=== PATIENT | male | born 1975 | race Caucasian/White ===

== ENCOUNTER 2018-06-01 14:08 | Observation (INO) ==
[2018-06-01 15:09] LABS: BASO# 0.03 X1000 (0.0-0.2); BASO% 0.5 % (0.0-0.8); EOS# 0.43 X1000 (0.0-0.7); EOS% 6.6 % (0.0-10.0); HEMATOCRIT 45.4 % (42.0-52.0); HEMOGLOBIN 15.6 g/dL (14.0-18.0); IMM GRAN# 0.02 X1000 (0.0-0.04); IMM GRAN% 0.3 % (0.0-0.5); LYMPH% 36.9 % (20.5-51.1); MCH 30.9 PG (27-31); MCHC 34.4 g/dL (33-37); MCV 89.9 FL (81-99); MONO# 0.51 X1000 (0.11-0.59); MONO% 7.8 % (1.7-9.3); MPV 10.9 FL (7.4-10.4); NEUT# 3.12 X1000 (1.4-6.5); NEUT% 47.9 % (42.2-75.2); PLT 211 X1000 (130-400); RBC 5.05 XMIL (4.7-6.1); RDW 12.8 % (11.5-14.5); WBC 6.51 X1000 (4.8-10.8)
[2018-06-01 15:10] LABS: BILIRUBIN URINE NEGATIVE (NEGATIVE); BLOOD URINE NEGATIVE (NEGATIVE); CLARITY CLEAR (CLEAR); COLOR YELLOW; GLUCOSE URINE NEGATIVE (NEGATIVE); KETONE URINE NEGATIVE (NEGATIVE); LEUKOCYTES URINE NEGATIVE (NEGATIVE); NITRITE URINE NEGATIVE (NEGATIVE); PH URINE 6.5; PROTEIN URINE NEGATIVE (NEGATIVE); UROBILINOGEN URINE NORMAL
--- NOTE | 2018-06-01 15:20 | Diag Imaging Result Doc PS360 ---
EXAM: CT HEAD W/O CONTRAST HISTORY: possible TIA TECHNIQUE: Images were obtained from the skull base to vertex without IV contrast as per standard protocol. COMPARISON: None. FINDINGS: There are no extra-axial collections. There is no evidence for acute infarct or hemorrhage. There is no midline shift or mass effect. There is no hydrocephalus. IMPRESSION: No acute intracranial abnormality is appreciated. This exam was performed using automated exposure control, adjustment of mA or kV according to patient size, and/or use of iterative reconstruction technique. Electronically signed by Dianna Quezada 06/01/2018 3:18 PM
--- NOTE | 2018-06-01 15:21 | Diag Imaging Result Doc PS360 ---
EXAM: CHEST-PORTABLE HISTORY: possible TIA TECHNIQUE: Single view of the chest was performed portably. COMPARISON: None. FINDINGS: The cardiomediastinal silhouette is within normal limits. The pulmonary vasculature is not congested. No infiltrate, effusion, or pneumothorax is appreciated. There are small scattered granulomata. IMPRESSION: No acute cardiopulmonary abnormality is identified. Electronically signed by Dianna Quezada 06/01/2018 3:19 PM
[2018-06-01 15:27] LABS: INR 0.99; PROTIME 13.6 Seconds (11.0-16.0)
[2018-06-01 15:28] LABS: AGAP 12; ALBUMIN 4.2 g/dL (3.5-5.0); ALKALINE PHOSPHATASE 88 U/L (32-122); BUN 11 mg/dL (8-22); CHLORIDE 106 mmol/L (98-107); COSMO 284; CREATININE 0.8 mg/dL (0.7-1.2); ESTIMATED GFR > 60; GLUCOSE 118 mg/dL (70-104); GOT 24 U/L (10-34); GPT 49 U/L (10-44); POTASSIUM 4.1 mmol/L (3.5-5.1); PTT 28.1 Seconds (22.3-41.8); SODIUM 142 mmol/L (136-145); TCO2 25 mmol/L (25-35); TOTAL PROTEIN 7.3 g/dL (6.3-8.3)
[2018-06-01 15:28] LABS: URINE SOURCE CLEAN CATCH
[2018-06-01 15:30] LABS: URINE BACTERIA NEGATIVE /HFP; URINE CAST NONE SEEN /LPF; URINE CRYSTAL NONE SEEN /HPF; URINE EPITHELIAL CELLS <10 /HPF (<10); URINE RBC <10 /HPF (<10); URINE WBC <10 /HPF (<10); URINE YEAST NONE SEEN /HPF
[2018-06-01] MEDS ORDERED: DUONEB (A & A) INH ONE (16:17)
--- NOTE | 2018-06-01 17:49 | PROVIDER DOCUMENTATION ---
This chart was entered by Anne Lucas Scribe, acting as scribe for Katie Phillips CRNP. HPI-Neurological Disorder - General Source: patient - History of Present Illness-Neuro Onset/Duration: reports: 5 days ago Timing: reports: improving Any recent trauma/injury?: reports: none <Katie Phillips - Last Filed: 06/01/18 18:14> <Rod Horn - Last Filed: 06/01/18 19:29> - General Chief Complaint: Stroke-Like Symptoms Stated Complaint: POSS TIA Time Seen by Provider: 06/01/18 14:45 Allergies/Adverse Reactions: Patient Allergies Allergy/AdvReac Type Severity Reaction Status Date / Time No Known Allergies Allergy Verified 06/01/18 14:31 Home Medications: Home Medication List Medication Instructions Recorded Confirmed Last Taken Type Azithromycin 500 mg PO DIRECTED 06/01/18 06/01/18 Unknown History Metoprolol Succinate [Toprol Xl] 25 mg PO BID 06/01/18 06/01/18 06/01/18 08:00 History Minocycline HCl 100 mg PO BID 06/01/18 06/01/18 06/01/18 08:00 History Nystatin 500,000 unit PO 4XDAY 06/01/18 06/01/18 06/01/18 08:00 History - History of Present Illness-Neuro Nature of Presenting Problem: 43 yom presents to ED c/o tingling, numbness and odd feeling in left face, arm and leg since Wednesday. Pt states he has had similar symptoms before but they went away quickly and he felt it was related to his Lyme Disease. Pt states his left leg is normally a little tingly from 3 previous back surgeries. Pt states he was told by PCP to call neurologist but they can't see him until June. Pt denies chest pain, rash or SOB. Pt has hx of HTN and Lyme disease, diagnosed 12/08. (Katie Phillips) Review of Systems - Adult - REVIEW OF SYSTEMS - ADULT Constitutional: reports: see HPI. denies: chills, fever, fatique Eyes: reports: no symptoms reported Ears, Nose, Mouth & Throat: reports: no symptoms reported Cardiovascular: reports: see HPI. denies: chest pain, syncope Respiratory: reports: see HPI. denies: shortness of breath, wheezing Gastrointestinal: reports: no symptoms reported Genitourinary: reports: no symptoms reported Musculoskeletal: reports: no symptoms reported Integumentary: reports: no symptoms reported Neurological: reports: see HPI, loss of balance, numbness, other (tingly feeling in left face, arm and leg). denies: headache/migraines Psychiatric: reports: no symptoms reported Endocrine: reports: no symptoms reported Hematologic/Lymphatic: reports: no symptoms reported Allergic/Immunologic: reports: no symptoms reported All Other Systems: Reviewed and Negative <Katie Phillips - Last Filed: 06/01/18 18:14> Past History - Adult - PAST MEDICAL HISTORY-ADULT Review of Records: reports: Nursing Assessment Review, Medications Reviewed, Social history reviewed & non-contributory. Major Childhood Illnesses: reports: denies history Cardiovascular: reports: HTN Respiratory: reports: denies history Gastrointestinal: reports: denies history Obstetrical/Gynecological: reports: denies history Genitourinary: reports: denies history Musculoskeletal: reports: denies history Neurological: reports: denies history Endocrine/Immune: reports: denies history Other Conditions: reports: other (Lyme disease) - IMMUNIZATION STATUS Childhood Immunizations: See Nurse Assessment Flu Vaccine: See Nurse Assessment - FAMILY HISTORY Family History: reviewed, not pertinent - SOCIAL HISTORY Smoking: denies <Katie Phillips Last Filed: 06/01/18 18:14> Physical Exam- Neurological - Physical Exam-Neuro Initial Vital Signs Reviewed: Yes General Appearance: appears well, alert, no apparent distress. negative: anxious, lethargic, slow to respond, combative Eye Exam: bilateral eye: normal inspection, PERRL HENMT: moist mucous membranes, normal ENT inspection. negative: angioedema Head Injury: no evidence of injury. negative: active bleeding, Moreno's Sign, contusions Neck: non-tender, full range of motion, supple, normal inspection. negative: Brudzinski's sign, carotid bruit Respiratory: chest non-tender, lungs clear, normal breath sounds, no pleuratic chest pain, no respiratory distress, no accessory muscle use. negative: crackles, rales, rhonchi Cardiovascular: normal peripheral pulses, regular rate, rhythm, no edema, no gallop, no JVD, no murmur. negative: bradycardia, tachycardia Abdominal Exam: normal bowel sounds, non tender, soft. negative: rigid, rebound, tenderness Lymphatic: no adenopathy. negative: striations Extremity: normal range of motion. negative: swelling panel builder Exam: normal hearing, normal speech, PERRL. negative: facial droop, facial paresthesias Coordination/Gait: normal finger to nose, normal gait Motor/Sensory: no motor deficit, no sensory deficit Neurologic: panel builder II-XII nml as tested, grossly normal, no motor/sensory deficits. negative: facial droop, focal weakness Integumentary: normal color, normal turgor, warm/dry. negative: diaphoresis, jaundice Psych/Mental Status: normal mood/affect, normal thought content, normal thought process, oriented x 3. negative: paranoid <Katie Phillips - Last Filed: 06/01/18 18:14> Progress - PLAN OF CARE/RESULTS Result Diagrams: 06/01/18 14:40 06/01/18 14:40 - REASSESSMENT Reassessment #1 Time Reassessed: 16:30 Status: other (pt now complaining of chest tightness, so orders cardiac enzymes) - EKG 1 Time of EKG reading by physician:: 15:07 EKG Read and Signed by:: Rod Horn EKG Interpretation (*Must complete 3 of following elements*): Normal Rate: 72 Rhythm: normal sinus QRS: normal ST Wave: normal - XRAY 1 XRAY: Bilateral XRAY Study: Chest Impression: See EMR Report (IMPRESSION: No acute cardiopulmonary abnormality is identified. Electronically signed by Dianna Quezada 06/01/2018 3:19 PM) - CT/MRI 1 CT Study: Head Impression: See EMR Report (IMPRESSION: No acute intracranial abnormality is appreciated. This exam was performed using automated exposure control, adjustment of mA or kV according to patient size, and/or use of iterative reconstruction technique. Electronically signed by Dianna Quezada 06/01/2018 3:18 PM) - CHANGE OF SHIFT REPORT (ED Provider) 1 Report Given and Care Transferred to:: Dr Horn Time of Transfer: 18:00 Items Pending: Labs (Troponin and cardiac markers) <Katie Phillips - Rehan Filed: 06/01/18 18:14> - PLAN OF CARE/RESULTS Result Diagrams: 06/01/18 14:40 06/01/18 14:40 - CONSULTS/PCP/HOSPITALIST Notification #1 *Consult/PCP/Hospitalist*: Dr Segura Time Discussed: 19:27 Consult Disposition: Admit <KoryRod youngValeria - Last Filed: 06/01/18 19:29> - PLAN OF CARE/RESULTS Progress/Plan/Lab Results: Vital Signs - 8 hr 06/01/18 14:23 06/01/18 16:49 06/01/18 17:00 Temperature 98.4 F 98.4 F Pulse Rate 81 68 80 Respiratory Rate 18 18 20 Blood Pressure 146/70 140/102 O2 Sat by Pulse Oximetry 97 96 Laboratory Results - last 24 hr 06/01/18 06/01/18 06/01/18 14:40 14:40 14:40 WBC 6.51 RBC 5.05 Hgb 15.6 Hct 45.4 MCV 89.9 MCH 30.9 MCHC 34.4 RDW Std Deviation 12.8 Plt Count 211 MPV 10.9 H Immature Gran % (Auto) 0.3 Neut % (Auto) 47.9 Lymph % (Auto) 36.9 Wallace % (Auto) 7.8 Eos % (Auto) 6.6 Baso % (Auto) 0.5 Immature Gran # (Auto) 0.02 Neut # (Auto) 3.12 Lymph # (Auto) 2.40 Wallace # (Auto) 0.51 Eos # (Auto) 0.43 Baso # (Auto) 0.03 PT INR PTT (Actin FS) Sodium 142 Potassium 4.1 Chloride 106 Carbon Dioxide 25 Anion Gap 12 BUN 11 Creatinine 0.8 Estimated GFR/1.73 m2 > 60 BUN/Creatinine Ratio 14 Glucose 118 H POC Glucose Calculated Osmolality 284 Calcium 9.0 Total Bilirubin 0.50 AST 24 ALT 49 H Alkaline Phosphatase 88 Creatine Kinase Troponin T < 0.010 Total Protein 7.3 Albumin 4.2 Globulin 3.0 Albumin/Globulin Ratio 1.0 Urine Source Urine Color Urine Clarity Urine pH Ur Specific [place] Urine Protein Urine Ketones Urine Blood Urine Nitrite Urine Bilirubin Urine Urobilinogen Urine Microscopic RBC Urine WBC Urine Microscopic WBC Ur Epithelial Cells Urine Crystals Urine Bacteria Urine Casts Urine Yeast Urine Glucose 06/01/18 06/01/18 06/01/18 14:40 14:45 15:12 WBC RBC Hgb Hct MCV MCH MCHC RDW Std Deviation Plt Count MPV Immature Gran % (Auto) Neut % (Auto) Lymph % (Auto) Wallace % (Auto) Eos % (Auto) Baso % (Auto) Immature Gran # (Auto) Neut # (Auto) Lymph # (Auto) Wallace # (Auto) Eos # (Auto) Baso # (Auto) PT 13.6 INR 0.99 PTT (Actin FS) 28.1 Sodium Potassium Chloride Carbon Dioxide Anion Gap BUN Creatinine Estimated GFR/1.73 m2 BUN/Creatinine Ratio Glucose POC Glucose 101 Calculated Osmolality Calcium Total Bilirubin AST ALT Alkaline Phosphatase Creatine Kinase Troponin T Total Protein Albumin Globulin Albumin/Globulin Ratio Urine Source CLEAN CATCH Urine Color YELLOW Urine Clarity CLEAR Urine pH 6.5 Ur Specific [place] 1.000 Urine Protein NEGATIVE Urine Ketones NEGATIVE Urine Blood NEGATIVE Urine Nitrite NEGATIVE Urine Bilirubin NEGATIVE Urine Urobilinogen NORMAL Urine Microscopic RBC <10 Urine WBC NEGATIVE Urine Microscopic WBC <10 Ur Epithelial Cells <10 Urine Crystals NONE SEEN Urine Bacteria NEGATIVE Urine Casts NONE SEEN Urine Yeast NONE SEEN Urine Glucose NEGATIVE 06/01/18 06/01/18 17:00 17:00 WBC RBC Hgb Hct MCV MCH MCHC RDW Std Deviation Plt Count MPV Immature Gran % (Auto) Neut % (Auto) Lymph % (Auto) Wallace % (Auto) Eos % (Auto) Baso % (Auto) Immature Gran # (Auto) Neut # (Auto) Lymph # (Auto) Wallace # (Auto) Eos # (Auto) Baso # (Auto) PT INR PTT (Actin FS) Sodium Potassium Chloride Carbon Dioxide Anion Gap BUN Creatinine Estimated GFR/1.73 m2 BUN/Creatinine Ratio Glucose POC Glucose Calculated Osmolality Calcium Total Bilirubin AST ALT Alkaline Phosphatase Creatine Kinase 83 Troponin T < 0.010 Total Protein Albumin Globulin Albumin/Globulin Ratio Urine Source Urine Color Urine Clarity Urine pH Ur Specific Galena Urine Protein Urine Ketones Urine Blood Urine Nitrite Urine Bilirubin Urine Urobilinogen Urine Microscopic RBC Urine WBC Urine Microscopic WBC Ur Epithelial Cells Urine Crystals Urine Bacteria Urine Casts Urine Yeast Urine Glucose Orders Category Date Time Status Finger Stick Blood Sugar (ED) DIRECTED Care 06/01/18 14:35 Active CHEST-PORTABLE [RAD] Stat Exams 06/01/18 14:[address] HEAD W/O CONTRAST [CT] Stat Exams 06/01/18 14:35 Completed CBC WITH ELECTRONIC DIFF [HEME] Stat Lab 06/01/18 14:40 Completed COMPREHENSIVE METABOLIC PANEL [CHEM] Stat Lab 06/01/18 14:40 Completed Cardiac Profile [CK PROFILE] [SP CHEM] Stat Lab 06/01/18 17:00 Completed PROTIME WITH INR [COAG] Stat Lab 06/01/18 14:40 Completed PTT [COAG] Stat Lab 06/01/18 14:40 Completed TROPONIN T Stat Lab 06/01/18 14:40 Completed TROPONIN T Stat Lab 06/01/18 17:00 Completed UA NIMS W/REFLEX CULT PL [URINALYSIS] Stat Lab 06/01/18 14:45 Completed Albuterol 2.5MG/Ipratrop 0.5MG [Duoneb (A & A)] Med 06/01/18 16:17 Discontinued 3 ml INH NOW ONE Aerosol Treatments Routine Oth 06/01/18 16:18 Completed Aerosol Treatments Stat Oth 06/01/18 16:18 Completed EKG [EKG] Stat Ther 06/01/18 14:35 Ordered In to see patient and discussed transfer of care to Dr Horn, patient verbalized understanding (Katie Phillips) Departure <Katie Phillips - Last Filed: 06/01/18 18:14> - Departure Date of Disposition Decision: 06/01/18 Time of Disposition Decision: 19:28 Certified Medical Emergency: Emergent - Critical Care Note This patient required my direct & personal management of CC.: No <Rod Horn - Last Filed: 06/01/18 19:29> - Departure DIAGNOSIS: Numbness and tingling, TIA (transient ischemic attack), Atypical chest pain Disposition: ADMITTED INPATIENT 09 Condition: Fair Additional Freetext Instructions: Continue current medications Call your physician for follow-up tomorrow Return to Emergency Room as discussed if symptoms return ED Follow Up Instructions: You have been treated by a care provider in the Emergency Department. These instructions are being provided to you so you can have an understanding of how to care for yourself upon discharge. Upon discharge from the Emergency Department, you are responsible for making arrangements for follow-up care by a physician of your choice. Take all prescribed medications as directed. Return to the Emergency Department immediately for any new or worsening symptoms. You may call the Physician Referral phone number at [phone] to obtain a list of Physicians who are taking new patients. Referrals and Follow-Ups: ANDERS LANZA [Primary Care Provider] - Attestation - Physician/ CHEO Attestation Patient care was provided by Advanced Practice Provider:: Yes Advanced Practice Provider:: Katie Phillips Advanced Practice Provider documentation review:: The Mid-level provider documentation, treatment plan and medical decision making was reviewed by the physician who agrees with all treatment and medical decision making by the MLP. <Katie Phillips - Last Filed: 06/01/18 18:14> - Physician/ CHEO Attestation Patient care was provided by Advanced Practice Provider:: Yes Advanced Practice Provider documentation review:: The Mid-level provider documentation, treatment plan and medical decision making was reviewed by the physician who agrees with all treatment and medical decision making by the MLP. The physician spent face to face time with patient:: Yes Advanced Practice Provider documentation review:: Supervising physician onsite and consulted in the evaluation and care of this patient. The physician did have a face to face encounter with the patient. <Rod Horn - Last Filed: 06/01/18 19:29> - NIH Stroke Scale Level of Consciousness: 0-Alert LOC Questions (ask month and age): 0-Answers Both Correctly LOC Commands (ask to open & close eyes;make a fist, let go): 0-Obeys Both Correctly Best Gaze (horizontal eye movement): 0-Normal Visual (use finger movement, counting or visual threat): 0-No Visual Loss Facial Palsy (show teeth or raise eyebrows & close eyes tght: 0-Symmetrical Movement Motor Function-left arm: 0-Normal Motor Function-right arm: 0-Normal Motor Function-left le-Normal Motor Function-right le-Normal Limb Ataxia(vsnioi-vbud-pvozwu, or heel to del real): 0-No Ataxia Sensory(pin prick to face,arms,trunk,legs-compare side/side): 0-No Ataxia Best Language(name item/read sentence.Ex-Down to Earth): 0-No Aphasia Dysarthria(Pt read words or say words Ex.Mama,Tip-Top,Thanks: 0-Normal Articulation Extinction and Inattention: 0-Normal <Rod Horn - Last Filed: 06/01/18 19:29> This chart was documented by the indicated scribe, (Anne Lucas, Jessica) and accurately reflects the services I performed and decisions made by , Katie Phillips CRNP, as attested by the provider's signature.
[2018-06-01] MEDS ORDERED: NS 1,000 ML IV ONE (19:33)
[2018-06-02] MEDS ORDERED: TYLENOL PO PRN (06:23)
[2018-06-02] MEDS ORDERED: ZOFRAN IV PRN (06:23)
[2018-06-02] MEDS ORDERED: LOVENOX SUBQ SCH (06:30)
[2018-06-02 07:59] LABS: BASO# 0.03 X1000 (0.0-0.2); BASO% 0.4 % (0.0-0.8); EOS# 0.54 X1000 (0.0-0.7); EOS% 7.1 % (0.0-10.0); HEMATOCRIT 45.8 % (42.0-52.0); HEMOGLOBIN 15.4 g/dL (14.0-18.0); IMM GRAN# 0.07 X1000 (0.0-0.04); IMM GRAN% 0.9 % (0.0-0.5); LYMPH# 2.56 X1000 (1.2-3.4); LYMPH% 33.6 % (20.5-51.1); MCH 30.8 PG (27-31); MCHC 33.6 g/dL (33-37); MCV 91.6 FL (81-99); MONO# 0.74 X1000 (0.11-0.59); MONO% 9.7 % (1.7-9.3); MPV 10.8 FL (7.4-10.4); NEUT# 3.69 X1000 (1.4-6.5); NEUT% 48.3 % (42.2-75.2); PLT 209 X1000 (130-400); RDW 13.1 % (11.5-14.5); WBC 7.63 X1000 (4.8-10.8)
[2018-06-02 08:25] LABS: AGAP 11; ALBUMIN 4.2 g/dL (3.5-5.0); ALKALINE PHOSPHATASE 86 U/L (32-122); BUN 14 mg/dL (8-22); CHLORIDE 107 mmol/L (98-107); COSMO 286; CREATININE 0.8 mg/dL (0.7-1.2); ESTIMATED GFR > 60; GLUCOSE 104 mg/dL (70-104); GOT 22 U/L (10-34); GPT 49 U/L (10-44); POTASSIUM 4.8 mmol/L (3.5-5.1); SODIUM 143 mmol/L (136-145); TCO2 25 mmol/L (25-35); TOTAL PROTEIN 7.1 g/dL (6.3-8.3)
[2018-06-02] MEDS ORDERED: ASPIRIN EC PO SCH (09:00)
--- NOTE | 2018-06-02 10:18 | Diag Imaging Result Doc PS360 ---
EXAM: MRI BRAIN W/WO CONTRAST - 06/02/2018 HISTORY: stroke TECHNIQUE: MRI brain without and with contrast. Images are obtained prior to and following gadolinium administration. COMPARISON: 06/01/2018 CT head without contrast FINDINGS: There is no evidence of intracranial hemorrhage, mass effect, midline shift, or hydrocephalus. There are no substantial signal abnormalities identified. The diffusion weighted images show no areas of restricted diffusion (no evidence of acute infarct). There is no abnormal enhancement identified. There is mild paranasal sinus disease noted. IMPRESSION: No visible intracranial abnormality. The diffusion weighted images show no evidence of acute infarct. Electronically signed by Angel Laguna 06/02/2018 10:16 AM
--- NOTE | 2018-06-02 10:24 | Diag Imaging Result Doc PS360 ---
EXAM: MRA BRAIN W/O CONTRAST - 06/02/2018 HISTORY: stroke TECHNIQUE: MRA brain without contrast. [id number] MR angiogram of the intracranial circulation with reconstructed 3-D MIP images is obtained. COMPARISON: None. FINDINGS: The A1 segment right anterior cerebral artery is apparently atretic, with the right A2 segment receiving its supply from the left via the anterior communicating artery. This likely represents normal variation. The distal portion of the left middle cerebral artery is generally smaller in caliber than the right, but does not show substantial focal stenosis. This could relate to normal variation or mild atherosclerotic narrowing. The left posterior cerebral artery is generally smaller in caliber than the right, but does not show substantial focal stenosis. This could relate to normal variation or mild atherosclerotic narrowing. Otherwise, there is no major intracranial arterial occlusion identified. There is no aneurysm identified. IMPRESSION: Findings as detailed above. Electronically signed by Angel Lgauna 06/02/2018 10:22 AM
[2018-06-02 12:47] VITALS: BP 129/87
--- NOTE | 2018-06-02 14:26 | Extremity Venous Study ---
EXAM: Carotid Ultrasound - 06/02/2018 HISTORY: tia TECHNIQUE: Carotid flow studies COMPARISON: None. FINDINGS: There is no discrete atherosclerotic plaquing identified in the right carotid system. Maximum systolic velocity right internal carotid is 50 cm/s, maximum diastolic velocity is 25 cm/s. The right internal to common carotid systolic velocity ratio is 0.74. The flow velocities and ratio are consistent with 0-39% stenosis at the right internal carotid. The right vertebral demonstrates antegrade flow. There is no discrete atherosclerotic plaquing identified in the left carotid system. Maximum systolic velocity in the left internal carotid is 73 cm/s, maximum diastolic velocity is 34 cm/s. The left internal to common carotid systolic velocity ratio is 1.02. The flow velocities and ratio are consistent with 0-39% stenosis at the left internal carotid. The left vertebral demonstrates antegrade flow. IMPRESSION: 0-39% stenosis at right internal carotid. 0-39% stenosis at left internal carotid. Electronically signed by Angel Laguna 06/02/2018 2:24 PM
--- NOTE | 2018-06-02 14:52 | EKG Report ---
Test Performed on : 06/01/2018 3:07:35 PM Test Reason : stroke like sx Blood Pressure : / mmHG Vent. Rate : 072 BPM Atrial Rate : 072 BPM P-R Int : 162 ms QRS Dur : 076 ms QT Int : 390 ms P-R-T Axes : 028 006 027 degrees QTc Int : 427 ms Normal sinus rhythm. Normal ECG No previous ECGs available Unconfirmed Result
--- NOTE | 2018-06-02 15:18 | HISTORY AND PHYSICAL ---
The patient was actually seen on 06/02/2018. LOAN UNDERWRITER: Dr. Ramires. NEUROCHIROPRACTOR: Lyme disease doctor in [place]. PRIMARY CARE PROVIDER: Amy Gaitan. NEUROLOGIST: Aleyda Coffey in [place]. CHIEF COMPLAINT: Left-sided numbness and tingling, episode of chest tightness in the ED. HISTORY OF PRESENT ILLNESS: Mr. Lopez is a 43-year-old, male who carries a past medical history of hypertension and Lyme disease that is chronic that he believes that he got as a child. He reports that he normally has numbness and tingling on the left side secondary to neck and back issues. He also drags his foot. However, on Wednesday, his numbness and tingling intensified. The felt like the left side of his mouth was not moving and he was more prominently dragging his left foot. By Wednesday afternoon, his prominence had subsided. He has had many of these episodes in the past, his last being back in March. They attribute this to his neck and back issues, as well as his Lyme disease, which he follows up closely with his neurochiropractor as well as his Lyme disease doctor in [place]. While in the ED, he did have an episode of chest tightness. He felt like he maybe had some shortness of breath. It did not radiate or go anywhere. There was no nausea, vomiting, or associated diaphoresis, and it resolved quickly as well. Three sets of cardiac enzymes have been negative. He was initially admitted for a TIA. He had a head CT that did not show any acute abnormalities. Brain MRI did not show any visible intracranial abnormality. No evidence of acute infarct. MRA shows normal variations or mild atherosclerotic narrowing. Carotid Dopplers and echocardiogram are currently pending. All other laboratory data is essentially unremarkable. PAST MEDICAL HISTORY: 1. Hypertension. 2. Lyme disease. PAST SURGICAL HISTORY: 1. Back surgery in 2002 with a diskectomy, back surgery with a fusion in 2003. 2. In 2018, he had a cyst removed from the back. 3. In 2013, he had a refusion with plastic cage and calcium placed. 4. In 1995, sinus surgery. FAMILY HISTORY: Mother with hypertension, CHF, TIAs. SOCIAL HISTORY: He is . They have 4 children. No alcohol, tobacco, or illicit drug use. ALLERGIES: No known drug allergies. HOME MEDICATIONS: Not completely accurate. I did take a look at his home medication. It was a page and we only have four medications listed. 1. Azithromycin 500 mg p.o. as directed Wednesday through Wednesday. He takes Wednesday and Wednesday off for his Lyme disease. 2. Toprol-XL 25 mg p.o. b.i.d. 3. Minocycline 100 mg p.o. b.i.d. 4. Nystatin 2 tablets p.o. b.i.d. 5. He takes several other herbal medications for his Lyme disease. PHYSICAL EXAMINATION: VITAL SIGNS: Temperature is 97.8 degrees, heart rate 68, respirations 18, blood pressure 129/87, O2 is 98% on room air. GENERAL: Mr. Lopez is a 43-year-old, male who is lying on the bed in no acute distress. at bedside. HEENT: Atraumatic, normocephalic. PERRL. NECK: Supple. Trachea midline. CARDIOVASCULAR: S1 and S2 are appreciated. No murmurs, gallops, or rubs. RESPIRATORY: Lung sounds clear bilaterally. GI: Soft, nontender, nondistended. Positive bowel sounds in 4 quadrants. EXTREMITIES: No lower extremity edema. NEUROLOGIC: No focal deficits noted. He is alert and oriented. Follows commands. Moves all extremities. No facial drooping, difficulty with speech. Tongue midline. He states when he is up walking, he does have a left foot drag. Did not assess gait and his normal is to have numbness and tingling on the left side of his body, so he feels more on the right than the left as far as sensation. DIAGNOSTIC DATA: As mentioned in the HPI, laboratory data, white count 6, hemoglobin and hematocrit 15 and 45, platelet count is 211,000. Chemistry: Sodium 142, potassium 4.1, BUN 11, creatinine 0.8, blood glucose is 118. AST slightly elevated at 49. Urinalysis was negative. His cholesterol is 202. ASSESSMENT/PLAN: 1. Transient ischemic attack versus cerebrovascular accident versus Lyme disease versus neck and back issues. The patient has undergone a majority of his studies with his brain MRI, head CT. We are awaiting his final results of his echocardiogram and carotid Dopplers. Again, this has completely resolved. This was an issue that happened on Wednesday and had resolved by the afternoon. The patient just now has his regular numbness and tingling, and left foot lag. 2. Atypical chest pain. Reported one episode of chest tightness that quickly resolved. Cardiac enzymes have been negative. Still awaiting echocardiogram. 3. Hypertension. Continue home medications. 4. Lyme disease. We will continue his home medications. 5. Further recommendations to follow physician evaluation, laboratory and diagnostic data. Dictated by YANN Bai for Nato Segura MD cc: MD Amy Vera
--- NOTE | 2018-06-02 15:27 | DISCHARGE SUMMARY ---
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 The patient has chronic paresthesias, but these were more intense. In any case, he came in with paresthesias. He is also having some chest pain so he was placed in observation for treatment. He has had an extensive workup. His neurologic exam is completely normal to me. He does report some numbness in the lower quadrants of his face starting from his eye down so he does have some frontal sparing, but that has been that way for a while. He is nonfocal. He has a nonfocal exam. His MRI was negative. MRA was negative. Echo and carotid are pending, but I think it is unlikely this is a vascular process. He is 43 without significant risk factors. I did recommend aspirin 81 mg until he follows up with his PCP or his neuro neurologist. He has an appointment on the with him. Other workup was unremarkable. DISPOSITION: Anticipate we will discharge today. DISCHARGE MEDICATIONS: Have not been resolved, but we will discharge on aspirin, Toprol-XL, and minocycline. Follow clinically. He has been on long-standing nystatin, minocycline, azithromycin, and may need to consider that. We just may need to consider long-term affects of these antibiotics that they may be in themselves inducing paresthesias. I do not really have a lot of workup there from that standpoint. He is not anemic nothing to suggest any other issues. Recommend again following up with his PCP. [id number] encounter note with Cherelle Livingston, and this will also serve as a discharge summary. cc: MD Amy Vera
[2018-06-02] MEDS ORDERED: ZOCOR PO SCH (21:00)
--- NOTE | 2018-06-06 15:29 | ECHO REPORT ---
ORDER DATE: 06/02/2018 ECHOCARDIOGRAPHIC MEASUREMENTS: 1. Interventricular septum 1.1. 2. Left ventricular posterior wall 1.0. 3. Diastolic diameter 3.8. 4. Left atrium 3.2. 5. Aorta 3.7. SUMMARY OF 2-DIMENSIONAL IMAGIN. Aortic valve leaflets were trileaflet. Pulmonic valve was normal. There is mild pulmonary regurgitation. Tricuspid valve was normal. Mitral valve was normal. Normal left ventricular cavity size. Estimated ejection fraction of 65%. There is mild mitral regurgitation. Mild tricuspid regurgitation. Peak velocity across the tricuspid valve was less than 2 m/sec. Peak velocity across the aortic valve less than 2 m/sec. There is no aortic stenosis or regurgitation. 2. There is no pericardial effusion or obvious intracardiac mass or thrombus seen. 3. Ultrasound was used to assess left ventricular systolic function as it was a technically suboptimal study. 4. There is no pericardial effusion or obvious intracardiac mass or thrombus seen. cc: Donnell Ramires MD
== END 2018-06-02 15:14 | disposition home or self-care (01) ==
LOC: P.ED 14:08 → INTOOBSV 14:09 → P.EDIPHOLD 23:39 → P.MEDSURG 06-02 07:40
PROVIDERS: ATTEND Internal Medicine
CPT/HCPCS: 70450; 70544; 70553; 71010; 71045; 80053; 80061; 81001; 82550; 82948; 83721; 84484; 85025; 85610; 85730; 93005; 93306; 93880; 94640; 96360; 96361; 96372; 99285; A9270; A9579; C8929; G0378; J1650; J7030; Q9957; XXXXX